=== PATIENT | male | born 1990 | race Caucasian/White ===

== ENCOUNTER 2022-09-19 20:01 | Emergency (ER) | payer OTHER, SELFPAY ==
--- NOTE | ~2022-09-19 | XR_ITS ---
EXAMINATION: XR chest 2V DATE: 09/19/2022 20:39 INDICATION: Shortness of breath. TECHNIQUE: Frontal and lateral views of the chest were obtained. COMPARISON: None. FINDINGS: The chest demonstrates clear lungs without pneumonia, pleural effusion, or pneumothorax. Th e heart size is normal. IMPRESSION: 1. No acute cardiopulmonary disease. Reviewed, dictated and finalized at location E.
[2022-09-19 20:11] VITALS: BP 150/92; PULSE 72; RESP 20; TEMP 36.4; O2SAT 96
--- NOTE | 2022-09-19 20:14 | ECG_ITS ---
Measurements Intervals [place] Rate: 73 P: 59 MT: 152 QRS: 77 QRSD: 85 T: 53 QT: 390 QTc: 431 Interpretive Statements SINUS RHYTHM NO PREVIOUS ECG AVAILABLE FOR COMPARISON Electronically Signed On 09-20-2022 11:00:04 CDT by Andrea Lawrence M.D.
[2022-09-19 20:39] LABS: Basophils Absolute Auto 0.1 K/mm3 (0.0-0.1); Basophils Percent Auto 1.1 % (0.2-1.2); Eosinophils Absolute Auto 0.6 K/mm3 (0-0.3); Eosinophils Percent Auto 6.8 % (0-4.4); Hematocrit 43.5 % (42.0-52.0); Hemoglobin 14.5 g/dL (14.0-18.0); Immature Granulocyte Absolute 0.02 K/mm3 (0.00-0.031); Immature Granulocyte Percent A 0.2 % (0-0.5); Lymphocytes Absolute Auto 3.05 K/mm3 (0.9-3.2); Lymphocytes Percent Auto 32.3 % (18.3-44.2); Mean Corpuscular HGB Conc 33.3 g/dl (32-36); Mean Corpuscular Hemoglobin 30.5 pg (26-34); Mean Corpuscular Volume 91.6 fl (80-100); Mean Platelet Volume 9.3 fl (7.4-10.4); Monocytes Absolute Auto 0.8 K/mm3 (0.1-0.6); Monocytes Percent Auto 8.5 % (2.6-8.5); Neutrophils Absolute Auto 4.8 K/mm3 (1.3-6.7); Neutrophils Percent Auto 51.1 % (45.5-73.1); Platelet Count Result 442 k/mm3 (150-375); Red Blood Count 4.75 M/mm3 (4.6-6.20); White Blood Count 9.5 K/mm3 (4.5-10.0)
[2022-09-19 20:49] LABS: Alanine Aminotransferase 32 U/L (6-50); Albumin Level 4.8 g/dL (3.5-5.1); Alkaline Phosphatase 49 U/L (38-126); Anion Gap 11 mmol/L (8-16); Aspartate Amino Transferase 27 U/L (17-59); Bilirubin,Total 0.5 mg/dL (0.2-1.3); Blood Urea Nitrogen 12 mg/dL (9-20); Carbon Dioxide 28 mmol/L (22-30); Chloride 101 mmol/L (98-107); Estimated CRCL calculation 138 ml/min; Estimated Glomerular Filt Rate > 60; Glucose 107 mg/dL (65-110); Potassium 3.9 mmol/L (3.4-5.0); Sodium 140 mmol/L (137-145)
[2022-09-19 22:25] VITALS: BP 124/88; PULSE 65; PULSE 66; RESP 14; O2SAT 95; O2SAT 97
[2022-09-20] MEDS: ALBUTEROL SULFATE (*SP) AEROSOL 1 PUFF 4 PUFF INHALATION (00:12)
--- NOTE | 2022-09-20 00:12 | ED.SOB ---
HPI - SOB/Dyspnea General Chief Complaint: Shortness of Breath/Dyspnea Stated Complaint: sob Time Seen by Provider: 09/19/22 22:55 History of Present Illness HPI Narrative: This is a 31-year-old male who denies past medical history, presenting to the emergency department complaining of shortness of breath and wheezing for the past day. He states yesterday he ran and noted wheezing. He also states he has seasonal allergies which are aggravated. He denies productive cough, chest pain or abdominal pain. Related Data Allergies Allergy/AdvReac Type Severity Reaction Status Date / Time No Known Allergies Allergy Verified 09/19/22 22:28 Review of Systems Review of Systems: CONSTITUTIONAL: Denies fever, chills, or sweats. EYES: Denies visual changes, redness, or discharge. ENT: Rhinorrhea, congestion denies sore throat, or otalgia. CARDIOVASCULAR: Denies chest pain, palpitations, or edema. RESPIRATORY: Wheezing denies cough or dyspnea. GASTROINTESTINAL: Denies abdominal pain, nausea, vomiting, or diarrhea. GENITOURINARY: Denies dysuria or hematuria. SKIN: Denies rash or itching. MUSCULOSKELETAL: Denies back pain, joint pain, or myalgia. NEUROLOGIC: Denies headache, numbness, dizziness, or weakness. PSYCHIATRIC: Denies anxiety or depression. Exam Narrative: GENERAL: Well-developed, well-nourished, and in no acute distress. HEAD: Normocephalic, atraumatic. EYES: PERRLA and EOMI. ENT: Nares clear, no rhinorrhea or epistaxis. Mucous membranes moist. Oropharynx without tonsillar hypertrophy exudate or other lesions. NECK: Supple. No adenopathy or masses. No carotid bruits or JVD CHEST: Bilateral posterior and expiratory wheeze with good aeration. No respiratory distress. No rales or rhonchi HEART: Regular rate and rhythm. No murmur heard. Normal peripheral pulses. ABDOMEN: Soft, nontender, nondistended, normal active bowel sounds. EXTREMITIES: Normal range of motion. No edema. SKIN: Warm, dry, no rash. NEURO: No focal deficits. Alert and oriented x3. PSYCH: Normal mood and affect. Course Course Emergency Course: 00:35 - On reevaluation, the patient states his breathing is improved. His lungs sound clear. I suspect his symptoms are related to reactive airway disease. I advised patient to follow-up with his primary care doctor for further evaluation. Discussed return and emergency precautions including signs/symptoms of respiratory distress and ACS. The patient voiced understanding and comfortable with the plan. All questions answered to his satisfaction. Vital Signs Vital signs: Vital Signs Temperature 97.6 F 09/19/22 20:11 Pulse Rate 72 09/19/22 20:11 Respiratory Rate 20 09/19/22 20:11 Blood Pressure 150/92 H 09/19/22 20:11 Pulse Oximetry 96 09/19/22 20:11 Oxygen Delivery Room Air 09/19/22 20:11 Temperature 97.6 F 09/19/22 20:11 Pulse Rate 82 09/20/22 00:25 Respiratory Rate 16 09/20/22 00:25 Blood Pressure 116/74 09/20/22 00:25 Pulse Oximetry 97 09/20/22 00:25 Oxygen Delivery Room Air 09/19/22 22:25 MDM - SOB/Dyspnea MDM Narrative Medical decision making narrative: Plan: Albuterol, labs, imaging, reassess Differential Diagnosis Differential diagnosis: Likely asthma with exacerbation and other (Seasonal allergies, pneumonia, metabolic abnormality, arrhythmia, other) Lab Data 09/19/22 20:33 09/19/22 20:33 Labs: Lab Results 09/19/22 Range/Units 20:33 WBC 9.5 (4.5-10.0) K/mm3 RBC 4.75 (4.6-6.20) M/mm3 Hgb 14.5 (14.0-18.0) g/dL Hct 43.5 (42.0-52.0) % MCV 91.6 (80-100) fl MCH 30.5 (26-34) pg MCHC 33.3 (32-36) g/dl RDW 12.0 (11.5-14.5) % Plt Count 442 H (150-375) k/mm3 MPV 9.3 (7.4-10.4) fl Immature Gran % (Auto) 0.2 (0-0.5) % Neut % (Auto) 51.1 (45.5-73.1) % Lymph % (Auto) 32.3 (18.3-44.2) % [place] % (Auto) 8.5 (2.6-8.5) % Eos % (Auto) 6.8 H (0-4.4) % Baso % (Auto) 1.1 (0.2-1
[2022-09-20 00:25] VITALS: BP 116/74; PULSE 82; RESP 16; O2SAT 97
== END 2022-09-20 01:06 | disposition home or self-care (01) ==
PROVIDERS: Emergency Provider Preventive Medicine Aerospace Medicine
DX: J45.909 Unspecified asthma, uncomplicated (principal)
CPT/HCPCS: 36415; 71046; 80053; 85025; 93005; 94664; 99283; A9270

== ENCOUNTER 2025-03-30 16:53 | Outpatient (CLI) | payer OTHER, SELFPAY ==
[2025-03-30 18:11] LABS: Alanine Aminotransferase 28 U/L (6-50); Albumin Level 4.6 g/dL (3.5-5.1); Alkaline Phosphatase 69 U/L (38-126); Anion Gap 10 mmol/L (4-12); Aspartate Amino Transferase 25 U/L (17-59); Bilirubin,Total 0.2 mg/dL (0.2-1.3); Blood Urea Nitrogen 23 mg/dL (9-20); Calcium 9.0 mg/dL (8.4-10.2); Carbon Dioxide 25 mmol/L (22-30); Chloride 102 mmol/L (98-107); Cholesterol 188 mg/dL (0-200); Estimated Glomerular Filt Rate > 60; Glucose 105 mg/dL (65-110); HDL Direct 36 mg/dL; Potassium 3.4 mmol/L (3.4-5.0); Sodium 137 mmol/L (137-145); Total Protein 7.8 g/dL (6.3-8.2); Triglycerides 336 mg/dL (<150)
--- OUTSIDE RECORDS SUMMARY | 2025-03-31 15:20 | XMS_ITS | Clinical Summary ---
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 Name Role Phone Tolu Edmonds MD Primary Care Provider Active Problems No known active problems Social History Tobacco Use Types Packs/Day Years Used Date Smoking Tobacco: Never Assessed Sex and Gender Information Value Date Recorded Sex Assigned at Not on file Legal Sex Male 2:41 PM CDT Gender Identity Not on file Sexual Orientation Not on file Last Filed Vital Signs Vital Sign Reading Time Taken Comments Blood Pressure 126/80 11/13/2022 11:28 AM CDT Pulse - - Temperature - - Respiratory Rate - - Oxygen Saturation - - Inhaled Oxygen Concentration - - Weight 100.2 kg (221 lb) 11/13/2022 11:28 AM CDT Height 188 cm (6' 2) 11/13/2022 11:28 AM CDT Body Mass Index 28.37 11/13/2022 11:28 AM CDT Plan of Treatment Health Maintenance Due Date Last Done Comments HPV VACCINES (1 - 3-dose SCD M series) 10/26/2019 DTAP/TDAP/TD VACCINES (2 - T d or Tdap) 10/30/2023 10/29/2013 INFLUENZA VACCINE (#1) 2024 , 04/01/2020, 05/01/2019, Additional history exists HEPATITIS B VACCINES Completed 12/04/2014, 12/20/2013, 11/03/2013 Insurance [employer] OPEN ACCESS Care Teams 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
== END 2025-03-30 16:54 | disposition home or self-care (01) ==
LOC: ANHLAB 16:57
PROVIDERS: PCP Family Medicine; Visit Provider Family Medicine
DX: Z13.220 Encounter for screening for lipoid disorders (principal); Z00.00 Encounter for general adult medical examination without abnormal findings
CPT/HCPCS: 36415; 80053; 80061